=== PATIENT | male | born 1970 | race Caucasian/White ===

== ENCOUNTER → 2017-10-24 15:06 | Outpatient (CLI) | payer OTHER, SELFPAY | PROVIDERS: PCP Internal Medicine; Visit Provider Internal Medicine | DX: G47.30 Sleep apnea, unspecified (principal); R51 Headache; R06.83 Snoring; G47.00 Insomnia, unspecified | CPT/HCPCS: 95806 ==

== ENCOUNTER 2023-01-07 17:48 | Emergency (ER) | payer OTHER, SELFPAY ==
[2023-01-07 17:55] VITALS: BP 140/88; PULSE 112; RESP 21; TEMP 38.8; O2SAT 96; BMI 41.3
--- NOTE | 2023-01-07 18:03 | EXP.UTC ---
Discharge Plan Disposition Patient Disposition: Home, Self-Care Condition: Good Prescriptions Prescriptions: New penicillin V potassium 500 mg tablet 500 mg PO BID Qty: 20 0RF Referrals Follow up/Referrals: Devante David MD [Primary Care Provider] - See instructions Activity Restrictions/Add. Instructions Additional Instructions/Restrictions: *Monitor Temp, Over the counter Motrin or Tylenol as directed/as needed Tylenol every 4 hours and Motrin every 6 hours (as long as your family doctor has told you that you can take it) for fever or pain. and straight to ER if unable to lower temp less than 101.0 after medication given *Warm salt water gargles may help to soothe the throat *Throat Lozenges? *Warm fluids like tea with honey may help to soothe the throat? *Sleep elevated *Humidifier/Vaporizer *If you did not take Penicillin shot or was unable to, start taking antibiotic immediately and make sure that you take it for the FULL length of time although you should start to feel better in 24-48 hours *change toothbrush and toothpaste 24-48 hours after starting to take antibiotics so you do not reinfect yourself Monitor Temp. Tylenol and/or Ibuprofen as needed. ER if fever is no less than 101 despite alternating Tylenol and Ibuprofen * Encourage fluids, water, Gatorade, powerade, pedialyte if /toddler/or child *Cold fluids, popsicles and ice cream may feel good on his throat Follow up IMMEDIATELY for new or worsening symptoms or no Noticeable improvement over the next 48-72 hours. 911 for difficulty breathing or swallowing Clinical Impressions Clinical Impression: Strep throat Instructions Patient Instructions: DI for Strep Throat, DI for Fever (Symptom) -- Adult Discharge ED Provider: Kaylee Michael [facility] [place] General Stated complaint: exposed to strep, sore throat Mode of Arrival: Ambulatory Source of Information: Patient Limitations: No Limitations Time Seen by Provider: 01/07/23 18:03 Description of Symptoms (Recalled from Triage Doc. by RN): PATIENT C/O SORE THROAT AND FEVER SINCE THIS MORNING. RECENTLY EXPOSED TO STREP HEENT Symptoms (Recalled from RN notes): Yes Resp Symptoms (Recalled from RN notes): No Skin Symptoms (Recalled from RN notes): No MS Symptoms (Recalled from RN notes): No Functional Status (Recalled from RN notes): WNL History of Present Illness Provider Complaint: Patient states that he just got back from family vacation and over half of the people with him has tested positive for strep throat the last couple of days States that this morning he woke up with his throat hurting and having fever like others that is positive for strep so this evening he came in to get tested Related Data Previous Rx's Medication Instructions Recorded penicillin V potassium 500 mg 500 mg PO BID #20 tabs 01/07/23 tablet Allergies Allergy/AdvReac Type Severity Reaction Status Date / Time codeine Allergy Verified 01/07/23 18:03 Worker's Comp Is this a Worker's Comp case?: No [facility] Disclaimer: The information contained in this section may have been updated after the patient was seen, as this information can be updated by other users. Surgical History (Updated 01/07/23 @ 18:04 by Annemarie Mitchell RN) History of hernia repair Social History Smoking Status: Never smoker alcohol intake: never current occupational status: other Travel in the last 8 weeks: None ROS Obtained: Yes All systems reviewed & no additional complaints except as documented and Yes Systems reviewed as appropriate & no additional complaints except as documented Constitutional Constitutional: Reports system reviewed and no additional complaints, except as documented, Reports as per HPI and Reports fever(s) ENT Ears, Nose, Mouth, and Throat: Reports system reviewed and no additional complaints, except as documented, Reports as per HPI and Reports sore th
[2023-01-07 18:09] LABS: UTC Strep Screen (Rapid) Positive (Negative)
[2023-01-07 18:10] VITALS: BP 140/88; PULSE 112; RESP 21; TEMP 38.8; O2SAT 96
== END 2023-01-07 18:20 | disposition home or self-care (01) ==
PROVIDERS: Emergency Provider Nurse Practitioner; PCP Internal Medicine
DX: J02.0 Streptococcal pharyngitis (principal); R50.9 Fever, unspecified
CPT/HCPCS: 87880; 99204; 99212; G0463